=== PATIENT | female | born 1980 | race Caucasian/White ===

== ENCOUNTER 2016-05-05 11:52 | Emergency (ER) | payer SELFPAY ==
[~2016-05-05] VITALS: Ht 152.4 cm; Wt 88.4 kg
[2016-05-05] MEDS ORDERED: XANAX1 MG PO (12:12)
[2016-05-05] MEDS ORDERED: EFFEXOR XR150 MG PO (12:12)
[2016-05-05 13:31] LABS: ADD MIUA? YES; BILIRUBIN NEGATIVE; BLOOD NEGATIVE; COLOR YELLOW ((YELLOW)); GLUCOSE (STRIP) NEGATIVE; KETONES NEGATIVE; LEUKOCYTES NEGATIVE; NITRITE NEGATIVE; PH, URINE 7.5 (5-8); PROTEIN (STRIP) TRACE; SPECIFIC GRAVITY 1.024 (1.000-1.030); UROBILINOGEN 0.2 MG/DL (0.2-1.0)
[2016-05-05 14:06] LABS: HEMATOCRIT 45.3 % (36.0-46.0); MCH 31.7 PG (29.0-34.0); MCHC 35.1 G/DL (30.0-36.0); MCV 90.2 FL (83-99); MEAN PLAT.VOLUME 10.1 uM^3 (9.5-12.4); PLATELET COUNT 212 K/uL (156-360); RBC DIS.WIDTH-SD 41.9 % (39-53); RED BLOOD COUNT 5.02 M/uL (3.80-5.20); WHITE BLOOD COUNT 10.4 K/uL (4.1-10.2)
[2016-05-05 14:11] LABS: RED BLOOD CELLS 0-5 /HPF (0-5); WHITE BLOOD CELLS 0-5 /HPF (0-5)
[2016-05-05 14:12] LABS: BACTERIA 1+ /HPF; CASTS NONE SEEN /LPF; CRYSTALS NONE SEEN; EPITHELIAL CELLS 1+ /HPF; MUCUS 1+ /LPF
[2016-05-05 14:16] LABS: CHLORIDE 105 mEq/L (99-109); POTASSIUM 4.3 mEq/L (3.7-5.4); SODIUM 138 mEq/L (136-147)
[2016-05-05 14:18] LABS: GLUCOSE 81 mg/dL (70-99)
[2016-05-05 14:20] LABS: ANION GAP 9 MEQ/L (2-14); TOTAL BILIRUBIN 0.8 mg/dL (0.0-1.0)
[2016-05-05 14:22] LABS: ALKALINE PHOSPHATASE 111 IU/L (3-129); GFR ESTIMATE (CALCULATED) > 59 mL/min/
[2016-05-05 14:23] LABS: UREA NITROGEN (BUN) 9 mg/dL (9-23)
[2016-05-05 14:25] LABS: LIPASE 127 U/L (1.0-51.0)
[2016-05-05 14:28] LABS: TROP-I INTERPRETATION NEGATIVE; TROPONIN-I < 0.01 ng/mL (0.0-0.30)
[2016-05-05 14:31] LABS: QUANTITATIVE HCG < 4.0 MIU/ML
[2016-05-05 15:39] LABS: INTERNAL CONTROL VALID? YES; MONOSPOT (MONONUCLEOSIS SEROL) NEGATIVE
[2016-05-05] MEDS ORDERED: ZOFRAN ODT4 MG PO (15:55)
[2016-05-05] MEDS ORDERED: TESSALON PERLE100 MG PO (15:55)
[2016-05-05 16:13] VITALS: BP 135/79
== END 2016-05-05 16:14 | disposition home or self-care (01) ==
LOC: EME 11:52 → RME 13:15 → EME 13:15 → RME 16:14
PROVIDERS: Nurse Practitioner Family
DX: J06.9 Acute upper respiratory infection, unspecified (principal); R74.8 Abnormal levels of other serum enzymes; J04.0 Acute laryngitis; F17.200 Nicotine dependence, unspecified, uncomplicated
CPT/HCPCS: 71020; 80053; 81003; 83690; 84484; 84702; 85027; 86308; 87651 90; 93005; 94640; 99281; 99284